=== PATIENT | female | born 1980 | race American Indian/Alaskan Native ===

== ENCOUNTER 2017-03-03 17:22 | Emergency (ER) | payer OTHER ==
--- NOTE | 2017-03-03 17:51 | Emergency Department Report ---
HPI - General Time Seen by Provider: 03/03/17 17:40 - HPI HPI: This is a 36-year-old Afro-[place] female presents to the emergency department from home with complaint of a nosebleed this been going on since about noon, 5.5 hours ago. She says that it started off in the left nostril/nasal passage but now she feels like there is blood in both. Up until presentation it was "pouring out" and going down the back of her throat. The patient says that she had this about 1 week ago but was not this bad and she went to a ENT physician at that time who did some cauterization. She denies any other significant past medical history. Today she has tried holding pressure, a tampon, without any relief. She is not on any blood thinners. She is to take some occasional Aleve but has not been taking it since the ENT physician told her to stop NSAIDs. ED Past Medical Hx - Past Medical History Previous Medical History?: Yes Hx Hypertension: Yes Hx Heart Attack/AMI: No Hx Congestive Heart Failure: No Hx Diabetes: Yes (steroid induced) Hx Deep Vein Thrombosis: No Hx Pulmonary Embolism: No Hx GERD: Yes Hx Liver Disease: No Hx of Cancer: No Hx Sickle Cell Disease: No Hx Arthritis: Yes Hx Headaches / Migraines: Yes Hx Seizures: No Hx Kidney Stones: No Hx Psychiatric Treatment: Yes (depression) Hx Asthma: Yes Hx COPD: Yes Hx Tuberculosis: No Hx Dementia: No Hx HIV: No Additional medical history: high cholesterol; osteoporosis; osteoarthritis; tindinitis; migraines - Surgical History Hx Coronary Stent: No Hx Pacemaker: No Hx Internal Defibrillator: No Additional Surgical History: surg on left foot. lapband surg. lymph nodes removed from arm pits, under right breast, and right groin. sinus surg x2. right wrist surg. toe surg due to fx x2 - Social History Smoking Status: Never Smoker Substance Use Type: None - Medications Home Medications: Home Medications Medication Instructions Recorded Confirmed Last Taken Type Albuterol Sulfate [Ventolin HFA] 2 puff IH Q4H PRN 07/21/13 03/03/17 10/09/14 History Budesoni/Formotero 160-4.5(Nf) 2 puff IH BID 07/21/13 03/03/17 10/08/14 History [Symbicort 160-4.5 (Nf)] Cetirizine HCl [Zyrtec] 10 mg PO DAILY 07/21/13 03/03/17 03/03/17 History Cholecalciferol (Vitamin D3) 1,000 unit PO DAILY 07/21/13 03/03/17 03/03/17 History [Vitamin D3] Losartan [Cozaar] 50 mg PO QDAY 07/21/13 03/03/17 03/03/17 History Montelukast [Singulair] 10 mg PO QPM 07/21/13 03/03/17 10/08/14 History Simvastatin [Zocor TAB] 40 mg PO QHS 07/21/13 03/03/17 1 Day Ago History ALPRAZolam [Xanax TAB] 0.5 mg PO HS 07/10/14 03/03/17 10/08/14 History Fluticasone [Flonase] 2 spray NS BID 07/10/14 03/03/17 03/03/17 History Zolpidem [Ambien] 10 mg PO HS 07/10/14 03/03/17 1 Day Ago History valACYclovir [Valtrex] 500 mg PO DAILY 08/27/14 03/03/17 1 Day Ago History Pantoprazole [Protonix TAB] 40 mg PO QDAY #30 tablet 08/31/14 03/03/17 1 Day Ago Rx predniSONE [Deltasone] 40 mg PO QDAY #60 tab 10/15/14 03/03/17 1 Day Ago Rx Calcium Carbonate [Calcium] 2 tab PO DAILY 01/26/16 03/03/17 03/03/17 History Dapagliflozin Propanediol [Farxiga] 10 mg PO DAILY 01/26/16 03/03/17 1 Day Ago History Furosemide [Lasix] 20 mg PO QDAY 01/26/16 03/03/17 03/03/17 History Meloxicam 15 mg PO QDAY 01/26/16 03/03/17 Unknown History Mv,Ca,Fe,Min/FA/Guarana/Caff [One 1 each PO DAILY 01/26/16 03/03/17 03/03/17 History Daily Tablet] Omeprazole [PriLOSEC] 20 mg PO QDAY 01/26/16 03/03/17 1 Day Ago History PARoxetine [Paxil] 20 mg PO DAILY 01/26/16 03/03/17 1 Day Ago History Potassium Chloride [Klor-Con 10] 20 meq PO DAILY 01/26/16 03/03/17 1 Day Ago History Sitagliptin Phos/Metformin HCl 1 tab PO BID 01/26/16 03/03/17 03/03/17 History [Janumet 50-1,000 mg] Topiramate (Nf) [Trokendi XR CAP] 200 mg PO DAILY 01/26/16 03/03/17 1 Day Ago History acetaZOLAMIDE [Diamox TAB] 250 mg PO BID 01/26/16 03/03/17 03/03/17 History Denosumab [Prolia] 60 mg PO DAILY 09/18/16 03/03/17 1 Day Ago History Eszopiclone [Lunesta] 3 mg PO DAILY 09/18/16 03/03/17 Unknown History HumaLOG VIAL See Protocol SUB-Q UNK 09/18/16 03/03/17 03/03/17 History Topiramate [Topiramate] 100 mg PO BID 09/18/16 03/03/17 03/03/17 History Budesoni/Formoterol 80-4.5(Nf) 2 puff IH BID #2 inha 09/21/16 03/03/17 Unknown Rx [Symbicort 80-4.5 (Nf)] Montelukast [Singulair] 10 mg PO QPM #30 tablet 09/21/16 03/03/17 03/03/17 Rx Prednisone [predniSONE (Magdaleno) ER 60 mg PO QDAY #6 tablet. 09/21/16 03/03/17 1 Day Ago Rx TAB] Amoxicillin/K Clav Tab [Augmentin 1 tab PO Q12HR #14 tab 03/03/17 Unknown Rx 875 mg] ED Review of Systems ROS: Stated complaint: NOSE BLEED Other details as noted in HPI Comment: All other systems reviewed and negative Constitutional: denies: chills, fever Eyes: denies: eye pain, eye discharge, vision change ENT: epistaxis. denies: ear pain Respiratory: denies: cough, shortness of breath, wheezing Cardiovascular: denies: chest pain, palpitations Gastrointestinal: denies: abdominal pain, nausea, diarrhea Genitourinary: denies: urgency, dysuria, discharge Musculoskeletal: denies: back pain, joint swelling, arthralgia Skin: denies: rash, lesions Neurological: denies: headache, weakness, paresthesias Physical Exam - Physical Exam Physical Exam: GENERAL: The patient is well-developed well-nourished. HEENT: Normocephalic. Atraumatic. Extraocular motions are intact. Patient has moist mucous membranes. Pupils equal reactive to light bilaterally. Oropharynx clear. Patient has bright red and maroon blood and clots seen in the bilateral nasal passages. There is some mild oozing out of the left nasal passage. NECK: Supple. Trachea is midline. CHEST/LUNGS: Clear to auscultation. There is no respiratory distress noted. HEART/CARDIOVASCULAR: Regular. There is mild tachycardia. There is no gallop rub or murmur. ABDOMEN: Abdomen is soft, nontender. Patient has normal bowel sounds. There is no abdominal distention. Obese habitus. SKIN: Skin is warm and dry. NEURO: The patient is awake, alert, and oriented. The patient is cooperative. The patient has no focal neurologic deficits. The patient has normal speech. MUSCULOSKELETAL: There is no tenderness or deformity. There is no limitation range of motion. There is no evidence of acute injury. - Procedure Description Procedures done: Procedure done: Left-sided nasal packing with Merocel. The packing was folded and the tip was covered with some sterile gel. It was then inserted into the left-sided nasal passage. The string was taped to the left side of the face. The Meocel expanded with absorption of the blood. There was no obvious complications with this procedure. ED Medical Decision Making - Lab Data Result diagrams: 03/03/17 17:58 03/03/17 17:58 - Medical Decision Making 36-year-old female presents with epistaxis since noon. It started off left- sided but then appears to have been bilateral. One of her see the patient she does have blood in the bilateral nasal passages however it appears to be worse on the left side. Patient was given gauze and told to hold pressure for 20 or 30 minutes. Upon reevaluation there is some mild oozing but otherwise it appears to have slowed down. However I'm unable to see the source of the blood in either Nare. I used some oxymetazoline spray to try and do vasoconstriction as well as slightly clear out the nasal passages to see the source of bleeding. The patient passed a clot out of the left nasal passage and started having a moderate amount of bleeding. At this point the patient had nasal packing done with Merocel. She then held pressure once again. This appeared to help slow down the bleeding but there was still some oozing once the Merisel had expanded. This packing was removed and a second Merocel was then packed into the left nasal passage. This time, upon reevaluation, the amount of bleeding was greatly reduced. I was able to see into the right side nasal passage and there was no visible blood at this time. This confirms that the left side was the source the blood. Patient's labs are unremarkable and she does not have significant anemia that would require any transfusion. Since the bleeding has slowed down and the patient does not appear to be in any acute distress, she was discharged home. She was given a dose of Augmentin here and a prescription for Augmentin to be taken for home. The patient already has a ENT physician and has been encouraged to follow-up Sunday without fail. If the patient continues to have any significant bleeding or she has any other problems or any acute distress, she will go to the closest emergency department. - Differential Diagnosis epistaxis, malignancy, sinusitis Critical Care Time: No Critical care attestation.: If time is entered above; I have spent that time in minutes in the direct care of this critically ill patient, excluding procedure time. ED Disposition Clinical Impression: Epistaxis Disposition: DISCHARGED TO HOME OR SELFCARE Is pt being admited?: No Condition: Stable Instructions: Epistaxis (ED) Additional Instructions: Please follow-up with your ENT physician on Sunday without fail. Keep the nasal packing in until that time. Return to the emergency department with any continued bleeding despite the nasal packing or any acute distress. Prescriptions: Amoxicillin/K Clav Tab [Augmentin 875 mg] 1 tab PO Q12HR #14 tab Referrals: PRIMARY CAREMD [Primary Care Provider] - ALETHEA Time of Disposition: 21:30
[2017-03-03 18:28] LABS: Hematocrit 34.3 % (30.3-42.9); Hemoglobin 10.8 gm/dl (10.1-14.3); Mean Corpuscular HGB Conc 31 % (30-34); Mean Corpuscular Hemoglobin 28 pg (28-32); Mean Corpuscular Volume 88 fl (79-97); Platelet Count 295 K/mm3 (140-440); White Blood Count 10.1 K/mm3 (4.5-11.0)
[2017-03-03 18:30] LABS: Anion Gap 14 mmol/L; BUN/Creatinine Ratio 26.25; Blood Urea Nitrogen 21 mg/dL (7-17); Calcium 7.1 mg/dL (8.4-10.2); Carbon Dioxide 23 mmol/L (22-30); Chloride 108.1 mmol/L (98-107); Glucose 186 mg/dL (65-100); Potassium 4.5 mmol/L (3.6-5.0); Sodium 141 mmol/L (137-145)
[2017-03-03] MEDS ORDERED: NACL 0.9% 1000 ML 1,000 ML IV ONE (18:34)
[2017-03-03 18:35] LABS: INR 0.99 (0.87-1.13); Partial Thromboplastin Time 25.6 Sec. (24.2-36.6)
[2017-03-03] MEDS ORDERED: AFRIN NS ONE (18:47)
[2017-03-03 18:58] LABS: Basophils % (Manual) 0 % (0.0-1.8); Blastocytes % (Manual) 0 %; Eosinophils % (Manual) 0 % (0.0-4.3)
[2017-03-03 18:59] LABS: Diff Status Complete; Hypochromasia 1+; Ovalocytes Few; Poikilocytosis Few
[2017-03-03] MEDS ORDERED: NORCO 5/325 PO ONE (19:37)
[2017-03-03] MEDS ORDERED: AUGMENTIN 875 MG PO ONE (21:29)
[2017-03-03 21:53] VITALS: BP 127/82
== END 2017-03-03 21:54 | disposition home or self-care (01) ==
LOC: ED 17:22
DX: R04.0 Epistaxis (principal); I10 Essential (primary) hypertension; E11.9 Type 2 diabetes mellitus without complications; K20.9 Esophagitis, unspecified; G43.909 Migraine, unspecified, not intractable, without status migrainosus; E78.00 Pure hypercholesterolemia, unspecified
CPT/HCPCS: 30901; 36415; 80048; 85007; 85025; 85610; 85730; 86850; 86900; 86901; 96360; 99284; J7030